=== PATIENT | male | born 1960 | race Caucasian/White ===

== ENCOUNTER 2020-06-23 10:56 | Emergency (ER) | payer MEDICARE, MEDICAID ==
[~2020-06-23] VITALS: Ht 175.3 cm; Wt 105.0 kg
[~2020-06-23 10:56] MED LIST: CIPR500T87 PO
[2020-06-23] MEDS ORDERED: SODIUM CHLORIDE FLUSH 10ML SYR IVF ONE (11:00)
--- NOTE | 2020-06-23 11:29 | NUR ---
BIB EMS FROM HOME, PT HAD BEEN OOT FOR PAST 3 DAYS AND DID NOT BRING HIS MEDICATIONS. +SOB STARTED LAST NIGHT WORSENING THIS MORNING WITH NON-PROD COUGH. EMS RPTS RA SA 86%, THEY APPLIED 1" OF NTG PASTE AND STARTED PT ON CPAP. PT PRESENTS A&O, O2 DELIVERY CHANGED TO 0XY MASK AT 8L, ETCO2 35 ON ARRIVAL, NOW 28. DR LOPEZ AT BEDSIDE, PT ASSESSMENT POC DISCUSSED AND ORDERS REC'D. Addendum: 06/23/20 at 1143 by LITTLE PT NOW STATES THAT HE WAS NOT OOT, JUST THAT HIS SO HAD NOT GIVEN HIM HIS MEDICATIONS FOR PAST 3 DAYS.
[2020-06-23] MEDS ORDERED: PLEASE ENTER HEIGHT AND WEIGHT MC SCH (11:30)
[2020-06-23] MEDS ORDERED: FUROSEMIDE 40 MG/4 ML ONE (11:37)
[2020-06-23 11:38] LABS: BASOPHILS # (AUTO) 0.05 x10^3/uL (0-0.1); BASOPHILS % (AUTO) 1 % (0-1); EOSINOPHILS # (AUTO) 0.19 x10^3/uL (0-0.4); EOSINOPHILS % (AUTO) 3 % (1-7); LYMPHOCYTES # (AUTO) 1.22 x10^3/uL (1-3.4); LYMPHOCYTES % (AUTO) 18 % (22-44); MD NO; MEAN CORPUSCULAR HEMOGLOBIN 28.8 pg (27.5-34.5); MEAN CORPUSCULAR HGB CONC 33.4 g/dL (33.2-36.2); MEAN PLATELET VOLUME 8.1 fL (7.4-10.4); MONOCYTES # (AUTO) 0.47 x10^3/uL (0.2-0.8); MONOCYTES % (AUTO) 7 % (2-9); NEUTROPHILS # (AUTO) 4.93 x10^3/uL (1.8-6.8); NEUTROPHILS % (AUTO) 72 % (42-75); PLATELET COUNT 161 x10^3/uL (130-400); RED BLOOD COUNT 4.68 x10^6/uL (4.38-5.82); RED CELL DISTRIBUTION WIDTH 15.6 % (9.4-14.8)
[2020-06-23 11:42] LABS: ALBUMIN 3.2 g/dL (3.4-5.0); ANION GAP 8 mmol/L (5-15); CHLORIDE 108 mmol/L (98-107)
--- NOTE | 2020-06-23 11:45 | NUR ---
PT MED NOTED, URINAL AT BEDSIDE. CALL LIGHT W/I REACH
--- NOTE | 2020-06-23 11:46 | NUR ---
PT STATES THAT HE USED [facility] 2 DAYS AGO
--- NOTE | 2020-06-23 11:47 | NUR ---
SBAR RPT TO MALENA GLASGOW
[2020-06-23 11:48] LABS: ALANINE AMINOTRANSFERASE 85 U/L (12-78); ALKALINE PHOSPHATASE 145 U/L (45-117); BILIRUBIN,TOTAL 0.7 mg/dL (0.2-1.0); CREATININE 1.26 mg/dL (0.7-1.3); TOTAL PROTEIN 6.1 g/dL (6.4-8.2); TROPONIN I 0.114 ng/mL (0.000-0.045)
--- NOTE | 2020-06-23 11:54 | NUR ---
DR LOPEZ AT BEDSIDE, TEST RESULTS REVIEWED. PLAN FOR ADMIT DISCUSSED, PT ADAMANTLY REFUSES ADMIT. DR LOPEZ EXPLAINED TO PT THAT HE COULD IF HE LEAVES TODAY. PT CONTINUES TO REFUSE ADMIT. I WILL TITRATE DOWN THE OXYGEN SUPPORT.
--- NOTE | 2020-06-23 11:57 | NUR ---
I EXPLAINED TO PT THAT WE WOULD BE TITRATING HIS OXYGEN SUPPORT DOWN AND REEVALUATE WITH HIM HOW HE FEELS OVER THE NEXT HOUR. PT IS AGREEABLE TO STAY UNTIL HE IS OFF THE OXYGEN.
[2020-06-23] MEDS ORDERED: FUROSEMIDE 40 MG/4 ML IV ONE (12:00)
[2020-06-23] MEDS ORDERED: ASPIRIN 81 MG TABLET CHEW PO ONE (12:00)
[2020-06-23 12:05] LABS: MICROSCOPIC NOT IND
--- NOTE | 2020-06-23 12:15 | NUR ---
REPORT RECEIVED FROM NISH GUY. PER NISH, THIS PT WISHES TO LEAVE AMA ONCE TITRATED OFF O2. PT RESTING ON GURNEY W/ CALL LIGHT IN REACH, SIDE RAILS UPX2. NADN.
[2020-06-23 12:18] LABS: AMPHETAMINE SCREEN, URINE Positive (Negative); BARBITURATE SCREEN, URINE Negative (Negative); BENZODIAZEPINE SCREEN, URINE Negative (Negative); CANNABINOID SCREEN, URINE Positive (Negative); COCAINE SCREEN, URINE Negative (Negative); METHADONE SCREEN, URINE Negative (Negative); OPIATE SCREEN, URINE Negative (Negative)
[2020-06-23 12:35] VITALS: BP 139/106
--- NOTE | 2020-06-23 12:36 | NUR ---
TASK RN: PT RESTING ON [facility], PT SIGNED AMA FORM, CURRENT SPO2 95% RA.
[2020-06-23] MEDS ORDERED: ASPIRIN 81 MG TABLET CHEW ONE (12:55)
[2020-06-27] MEDS ORDERED: FURO-93 PO (18:31)
[2020-06-27] MEDS ORDERED: CARV3.1212 PO (18:31)
== END 2020-06-23 13:11 | disposition home or self-care (01) ==
LOC: ED 13:00
DX: E11.65 Type 2 diabetes mellitus with hyperglycemia (principal); F15.10 Other stimulant abuse, uncomplicated; I50.82 Biventricular heart failure; I21.9 Acute myocardial infarction, unspecified; R06.00 Dyspnea, unspecified; R06.02 Shortness of breath
CPT/HCPCS: 36415; 36600; 71045; 80053; 80307; 81003; 82803; 83605; 83880; 84484; 85025; 87040; 93005; 96374; 99285; J1940

== ENCOUNTER 2020-11-11 13:12 | Inpatient (IN) | payer MEDICARE, MEDICAID ==
[~2020-11-11] VITALS: Ht 175.3 cm; Wt 94.4 kg
[~2020-11-11 13:12] MED LIST changes: +CARV3.1212 PO; +FURO-93 PO
[2020-11-11] MEDS ORDERED: SODIUM CHLORIDE FLUSH 10ML SYR IVF ONE (14:30)
[2020-11-11 14:34] LABS: MEAN CORPUSCULAR HEMOGLOBIN 28.8 pg (27.5-34.5); MEAN CORPUSCULAR HGB CONC 33.4 g/dL (33.2-36.2); PLATELET COUNT 165 x10^3/uL (130-400); RED BLOOD COUNT 4.94 x10^6/uL (4.38-5.82); RED CELL DISTRIBUTION WIDTH 18.4 % (9.4-14.8)
[2020-11-11 14:45] LABS: ALANINE AMINOTRANSFERASE 292 U/L (12-78); ANION GAP 6 mmol/L (5-15); CALCIUM 8.3 mg/dL (8.5-10.1); CHLORIDE 107 mmol/L (98-107); CREATININE 1.25 mg/dL (0.7-1.3)
[2020-11-11 14:50] LABS: ALKALINE PHOSPHATASE 147 U/L (45-117); BILIRUBIN,TOTAL 2.2 mg/dL (0.2-1.0); TOTAL PROTEIN 6.3 g/dL (6.4-8.2); TROPONIN I 0.053 ng/mL (0.000-0.045)
[2020-11-11] MEDS ORDERED: NITROGLYCERIN OINT 2%, 1GM TP ONE ×2 (15:30→15:48)
[2020-11-11] MEDS ORDERED: ASPIRIN 81 MG TABLET CHEW PO ONE (15:30)
[2020-11-11 15:41] LABS: MD YES
[2020-11-11 15:43] LABS: BAND#(MANUAL) 0.58 x10^3/uL; BANDS%(MANUAL) 4 % (0-7); LYMPH#(MANUAL) 1.31 x10^3/uL (1-3.4); LYMPHS% (MANUAL) 9 % (22-44); MONOS#(MANUAL) 1.16 x10^3/uL (0.3-2.7); MONOS% (MANUAL) 8 % (2-9); SEG#(MANUAL) 11.46 x10^3/uL (1.8-6.8); SEGS% (MANUAL) 79 % (42-75)
[2020-11-11 15:45] LABS: <PLATELET ESTIMATE> ADEQUATE; <PLT MORPHOLOGY> NORMAL PLT MORPH; ANISOCYTOSIS 1+
[2020-11-11] MEDS ORDERED: FUROSEMIDE 40 MG/4 ML ONE (15:47)
[2020-11-11] MEDS ORDERED: POTASSIUM CHLORIDE 20 MEQ TAB.ER.PRT ONE (15:48)
[2020-11-11] MEDS ORDERED: ASPIRIN 81 MG TABLET CHEW ONE (15:48)
[2020-11-11] MEDS ORDERED: ENALAPRILAT 1.25 MG/ML, 2ML IVPush PRN (16:00)
[2020-11-11] MEDS ORDERED: hydrALAzine 20 MG/ML, 1ML IVPush PRN (16:00)
[2020-11-11] MEDS ORDERED: MELATONIN 5 MG TABLET PO PRN (16:00)
[2020-11-11] MEDS ORDERED: ENALAPRILAT 1.25 MG/ML, 2ML IV ONE (16:00)
[2020-11-11] MEDS ORDERED: BISACODYL 10 MG SUPP PR PRN (16:00)
[2020-11-11] MEDS ORDERED: POTASSIUM CHLORIDE 20 MEQ TAB.ER.PRT PO ONE (16:00)
[2020-11-11] MEDS ORDERED: FUROSEMIDE 40 MG/4 ML IV ONE (16:00)
[2020-11-11] MEDS ORDERED: ONDANSETRON 2MG/ML, 2ML IVPush PRN (16:00)
[2020-11-11] MEDS ORDERED: POLYETHYLENE GLYCOL 17 GM PACKET PO PRN (16:00)
[2020-11-11] MEDS ORDERED: GUAIFENESIN/DM 200-20MG, 10ML UDC PO PRN (16:00)
[2020-11-11] MEDS ORDERED: LABETALOL 5MG/ML, 20ML IVPush PRN (16:00)
[2020-11-11] MEDS ORDERED: ONDANSETRON ODT 4 MG PO PRN (16:00)
[2020-11-11] MEDS ORDERED: FUROSEMIDE IV PRN (16:00)
[2020-11-11] MEDS ORDERED: SODIUM CHLORIDE 0.9% IV PRN (16:00)
[2020-11-11] MEDS ORDERED: ACETAMINOPHEN 325 MG TABLET PO PRN (16:00)
--- NOTE | 2020-11-11 16:06 | NUR ---
Late entry summary note: Pt has multiple complaints, see physical assessment. Pt has been sleeping while here in the ER, connected to all monitors. Pt medicated to MD Petrona CHANEY made aware of Vasotec shortage and gave verbal okay to start with Nitro paste, will continue to monitor BP and request orders if necessary. Lasix ordered from RX to be run over 10 minutes. Will administer when it arrives.
[2020-11-11] MEDS ORDERED: SODIUM CHLORIDE 0.9% IV ONE ×2 (16:30)
[2020-11-11] MEDS ORDERED: FUROSEMIDE IV ONE ×2 (16:30)
--- NOTE | 2020-11-11 16:54 | NUR ---
Hospital bed ordered.
[2020-11-11] MEDS ORDERED: ENOXAPARIN 40 MG/0.4 ML ONE (16:57)
[2020-11-11] MEDS ORDERED: CEFTRIAXONE PMX 1GM/50ML 50 ML ONE (16:57)
--- NOTE | 2020-11-11 17:04 | NUR ---
Pt to imaging.
--- NOTE | 2020-11-11 17:10 | NUR ---
MANOJ, Almaz, [employer] OPERATOR called to verify medication orders. Hold 1700 Lasix.
[2020-11-11] MEDS: FUROSEMIDE 40 MG/4 ML IV SCH (17:11)
[2020-11-11] MEDS ORDERED: OMNIPAQUE 350 MG/ML, 75ML BOTTLE ONE (17:25)
[2020-11-11] MEDS: CEFTRIAXONE PMX 1GM/50ML 50 ML IV SCH (17:37)
[2020-11-11] MEDS ORDERED: ENOXAPARIN 100 MG/ML ONE (17:48)
[2020-11-11] MEDS: ENOXAPARIN 100 MG/ML SQ SCH (17:54)
--- NOTE | 2020-11-11 18:27 | NUR ---
This RN administered PO medications. Pt able to swallow, based on this encounter, nectar thick diet tray ordered until speech path can do official swallow eval.
--- NOTE | 2020-11-11 18:32 | NUR ---
Pt to imaging.
--- NOTE | 2020-11-11 19:07 | NUR ---
received report from MALENA Warren. patient resting in bed. CAMILA
--- NOTE | 2020-11-11 19:23 | NUR ---
patient eating dinner at this time. Covid swab obtained and sent to lab.
--- NOTE | 2020-11-11 19:54 | NUR ---
patient urine out ~ 800 cc. states " I can breathe a little better ".
[2020-11-11 20:10] LABS: TROPONIN I 0.055 ng/mL (0.000-0.045)
--- NOTE | 2020-11-11 20:58 | NUR ---
patient moved to 34. report to MALENA Grajeda
[2020-11-11] MEDS ORDERED: DOXYCYCLINE 100MG TABLET ONE (21:07)
[2020-11-11] MEDS: DOXYCYCLINE 100MG TABLET PO SCH (21:14)
--- NOTE | 2020-11-11 21:21 | NUR ---
pt in bed, vss, admin meds,
[2020-11-12 01:54] VITALS: BP 137/89
[2020-11-12 02:36] LABS: BASOPHILS % (AUTO) 1 % (0-1); EOSINOPHILS % (AUTO) 1 % (1-7); LYMPHOCYTES % (AUTO) 13 % (22-44); MEAN CORPUSCULAR HEMOGLOBIN 28.6 pg (27.5-34.5); MEAN PLATELET VOLUME 8.1 fL (7.4-10.4); MONOCYTES % (AUTO) 13 % (2-9); NEUTROPHILS % (AUTO) 73 % (42-75); PLATELET COUNT 181 x10^3/uL (130-400); RED BLOOD COUNT 4.95 x10^6/uL (4.38-5.82); RED CELL DISTRIBUTION WIDTH 18.2 % (9.4-14.8)
[2020-11-12 02:37] LABS: MD NO
[2020-11-12 02:46] LABS: ALANINE AMINOTRANSFERASE 238 U/L (12-78); ALBUMIN 2.8 g/dL (3.4-5.0); ANION GAP 3 mmol/L (5-15); CALCIUM 8.1 mg/dL (8.5-10.1); CHLORIDE 106 mmol/L (98-107)
[2020-11-12 02:49] LABS: ALKALINE PHOSPHATASE 143 U/L (45-117); BILIRUBIN,TOTAL 1.6 mg/dL (0.2-1.0); CHOLESTEROL, TOTAL 88 mg/dL (140-239); HDL CHOL % 25 % (26-37); HDL CHOLESTEROL (DIRECT) 22 mg/dL (40-60); LDL CHOLESTEROL,CALCULATED 53 mg/dL (54-169); LDL/HDL RATIO 2.4 (0.5-3.0); TOTAL PROTEIN 6.2 g/dL (6.4-8.2); TRIGLYCERIDES 67 mg/dL (50-200); VLDL CHOLESTEROL 13 mg/dL (0-25)
[2020-11-12] MEDS: ENOXAPARIN 100 MG/ML SQ SCH ×2 (03:24→16:00)
[2020-11-12 03:32] LABS: AMPHETAMINE SCREEN, URINE Negative (Negative); BARBITURATE SCREEN, URINE Negative (Negative); BENZODIAZEPINE SCREEN, URINE Negative (Negative); CANNABINOID SCREEN, URINE Positive (Negative); COCAINE SCREEN, URINE Negative (Negative); METHADONE SCREEN, URINE Negative (Negative); OPIATE SCREEN, URINE Positive (Negative)
[2020-11-12 06:40] VITALS: BP 126/83
[2020-11-12] MEDS: POTASSIUM CHLORIDE 20 MEQ TAB.ER.PRT PO SCH ×2 (10:33→18:23)
[2020-11-12] MEDS: DOXYCYCLINE 100MG TABLET PO SCH ×2 (10:33→20:35)
[2020-11-12] MEDS: SENNA/DOCUSATE TABLET PO SCH (10:33)
[2020-11-12] MEDS: FUROSEMIDE 40 MG/4 ML IV SCH ×2 (10:34→18:23)
[2020-11-12 12:19] VITALS: BP 127/68
[2020-11-12] MEDS: CEFTRIAXONE PMX 1GM/50ML 50 ML IV SCH (18:22)
[2020-11-12] MEDS: CARVEDILOL 3.125 MG TABLET PO SCH (18:23)
[2020-11-12 19:55] VITALS: BP 132/93
[2020-11-13 00:36] VITALS: BP 124/88
[2020-11-13] MEDS: ENOXAPARIN 100 MG/ML SQ SCH (04:13)
[2020-11-13 05:19] VITALS: BP 134/87
[2020-11-13] MEDS: CARVEDILOL 3.125 MG TABLET PO SCH ×2 (05:20→17:04)
[2020-11-13 06:21] LABS: BASOPHILS % (AUTO) 0 % (0-1); EOSINOPHILS % (AUTO) 2 % (1-7); LYMPHOCYTES % (AUTO) 11 % (22-44); MEAN CORPUSCULAR HEMOGLOBIN 28.7 pg (27.5-34.5); MEAN CORPUSCULAR HGB CONC 33.3 g/dL (33.2-36.2); MEAN PLATELET VOLUME 7.9 fL (7.4-10.4); MONOCYTES % (AUTO) 9 % (2-9); NEUTROPHILS % (AUTO) 78 % (42-75); PLATELET COUNT 163 x10^3/uL (130-400); RED BLOOD COUNT 4.72 x10^6/uL (4.38-5.82); RED CELL DISTRIBUTION WIDTH 18.3 % (9.4-14.8)
[2020-11-13 06:22] LABS: MD NO
[2020-11-13 06:28] LABS: CALCIUM 8.1 mg/dL (8.5-10.1); CHLORIDE 107 mmol/L (98-107)
[2020-11-13 06:34] LABS: ALANINE AMINOTRANSFERASE 130 U/L (12-78); ALBUMIN 2.4 g/dL (3.4-5.0); ALKALINE PHOSPHATASE 113 U/L (45-117); ANION GAP 5 mmol/L (5-15); BILIRUBIN,TOTAL 1.4 mg/dL (0.2-1.0); CREATININE 1.27 mg/dL (0.7-1.3); TOTAL PROTEIN 5.4 g/dL (6.4-8.2)
[2020-11-13 07:35] VITALS: BP 100/73
[2020-11-13] MEDS: SENNA/DOCUSATE TABLET PO SCH (07:41)
[2020-11-13] MEDS: DOXYCYCLINE 100MG TABLET PO SCH ×2 (07:41→21:36)
[2020-11-13] MEDS: FUROSEMIDE 40 MG/4 ML IV SCH ×2 (07:41→17:03)
[2020-11-13] MEDS: POTASSIUM CHLORIDE 20 MEQ TAB.ER.PRT PO SCH ×2 (07:41→17:03)
[2020-11-13 13:26] VITALS: BP 117/77
[2020-11-13] MEDS: APIXABAN 5 MG TABLET PO SCH ×2 (15:09→21:36)
[2020-11-13] MEDS ORDERED: FLU VACC QS2020-21(6MOS UP)/PF 60MCG/0.5 ML SYR IM ONE (17:30)
[2020-11-13] MEDS: CEFTRIAXONE PMX 1GM/50ML 50 ML IV SCH (17:44)
[2020-11-13 19:57] VITALS: BP 108/69
[2020-11-14 02:20] VITALS: BP 117/85
[2020-11-14 03:55] LABS: ANION GAP 3 mmol/L (5-15); CALCIUM 7.9 mg/dL (8.5-10.1); CHLORIDE 109 mmol/L (98-107); CREATININE 1.25 mg/dL (0.7-1.3)
[2020-11-14] MEDS: CARVEDILOL 3.125 MG TABLET PO SCH (05:27)
[2020-11-14 07:14] VITALS: BP 119/73
[2020-11-20] MEDS ORDERED: APIXABAN 5 MG TABLET PO SCH (09:00)
== END 2020-11-14 07:58 | disposition left against medical advice (07) | DRG 175 ==
LOC: ED 13:53 → EDIP 15:07 → 4EST 11-12 01:52 → 5SO 11-13 13:43
PROVIDERS: ADMIT Internal Medicine; ATTEND Internal Medicine
DX: I26.99 Other pulmonary embolism without acute cor pulmonale (principal); J18.9 Pneumonia, unspecified organism; I50.23 Acute on chronic systolic (congestive) heart failure; J96.00 Acute respiratory failure, unspecified whether with hypoxia or hypercapnia; I13.0 Hypertensive heart and chronic kidney disease with heart failure and stage 1 through stage 4 chronic kidney disease, or unspecified chronic kidney disease; I24.8 Other forms of acute ischemic heart disease; E87.6 Hypokalemia; F12.90 Cannabis use, unspecified, uncomplicated; F17.210 Nicotine dependence, cigarettes, uncomplicated; H54.61 Unqualified visual loss, right eye, normal vision left eye; Z66 Do not resuscitate; N40.0 Benign prostatic hyperplasia without lower urinary tract symptoms; N18.30 Chronic kidney disease, stage 3 unspecified; I49.3 Ventricular premature depolarization; M21.371 Foot drop, right foot; Z53.29 Procedure and treatment not carried out because of patient's decision for other reasons; K76.1 Chronic passive congestion of liver; Z20.822 Contact with and (suspected) exposure to COVID-19; Z91.14 Patient's other noncompliance with medication regimen; Z91.19 Patient's noncompliance with other medical treatment and regimen; Z83.3 Family history of diabetes mellitus
CPT/HCPCS: 36415; 71045; 71275; 80048; 80053; 80061; 80307; 83615; 83735; 83880; 84145; 84443; 84484; 85025; 85379; 86140; 87040; 93005; 99291; G0378; J0696; J1650; J1940; Q9967; U0003

== ENCOUNTER 2021-03-01 17:43 | Emergency (ER) | payer MEDICARE, MEDICAID ==
[~2021-03-01] VITALS: Ht 172.7 cm; Wt 99.0 kg
[2021-03-01] MEDS ORDERED: SODIUM CHLORIDE FLUSH 10ML SYR IVF ONE (18:00)
--- NOTE | 2021-03-01 18:19 | NUR ---
PT PLACED IN PT GOWN. PT SPEECH SLURRED AND RUSHED. PT STATED THAT IS NEW OF THIS AM IS THE ABD DISTENTION AND DIFFICULTY BREATHING. ERP HAS EVALUATED PT, ORDERS PLACED. PT ON CARDIAC AND VITALS MONITORS. LAB IN AT THIS TIME TO DRAW BLOOD.
[2021-03-01 18:33] LABS: BASOPHILS % (AUTO) 1 % (0-1); EOSINOPHILS % (AUTO) 6 % (1-7); LYMPHOCYTES % (AUTO) 22 % (22-44); MEAN CORPUSCULAR HEMOGLOBIN 21.5 pg (27.5-34.5); MEAN CORPUSCULAR HGB CONC 30.6 g/dL (33.2-36.2); MEAN PLATELET VOLUME 8.7 fL (7.4-10.4); MONOCYTES % (AUTO) 9 % (2-9); NEUTROPHILS % (AUTO) 62 % (42-75); PLATELET COUNT 199 x10^3/uL (130-400); RED BLOOD COUNT 4.68 x10^6/uL (4.38-5.82); RED CELL DISTRIBUTION WIDTH 20.9 % (9.4-14.8)
--- NOTE | 2021-03-01 18:40 | NUR ---
PT YELLING OUT INTO HALLWAY FOR RANDOM THINGS. PT ASKED TO STOP YELLING. PT STATED HE WANTS TO LEAVE. PT INFORMED THAT HE IS SAFE IN THE HOSPITAL AND THE DOCTOR HAS ORDERED TESTS. PT CONTINUING TO YELL FOR RN, WATER, HELP, ETC. PT IS IN ROOM BY RN STATION. HE IS RESTING IN BED AND BEING MONITORED. WILL CONTINUE TO MONITOR.
[2021-03-01 18:41] LABS: ALBUMIN 3.1 g/dL (3.4-5.0); ANION GAP 6 mmol/L (5-15); CALCIUM 8.3 mg/dL (8.5-10.1); CHLORIDE 112 mmol/L (98-107)
[2021-03-01 18:47] LABS: ALANINE AMINOTRANSFERASE 45 U/L (12-78); ALKALINE PHOSPHATASE 126 U/L (45-117); BILIRUBIN,TOTAL 0.5 mg/dL (0.2-1.0); CREATININE 1.21 mg/dL (0.7-1.3); TROPONIN I 0.032 ng/mL (0.000-0.045)
[2021-03-01 18:52] LABS: MD MORPH REVIEW ONLY
[2021-03-01 18:53] LABS: ANISOCYTOSIS 1+; MICROCYTOSIS 2+; POLYCHROMASIA 1+
[2021-03-01 18:54] LABS: ECHINOCYTES 1+; HYPOCHROMIA 2+; OVALOCYTES 1+; SCHISTOCYTES 1+
[2021-03-01 18:55] LABS: <PLATELET ESTIMATE> ADEQUATE; <PLT MORPHOLOGY> NORMAL PLT MORPH
--- NOTE | 2021-03-01 19:08 | NUR ---
RECEIVED REPORT FROM TALON GUY TO [facility].
--- NOTE | 2021-03-01 19:28 | NUR ---
URINE SENT. PT STATES FEEL MUCH BETTER. VSS. RAILS UP X2.
[2021-03-01 19:51] LABS: AMPHETAMINE SCREEN, URINE Positive (Negative); BARBITURATE SCREEN, URINE Negative (Negative); BENZODIAZEPINE SCREEN, URINE Negative (Negative); CANNABINOID SCREEN, URINE Positive (Negative); COCAINE SCREEN, URINE Negative (Negative); METHADONE SCREEN, URINE Negative (Negative); OPIATE SCREEN, URINE Negative (Negative)
[2021-03-01 21:52] VITALS: BP 140/93
--- NOTE | 2021-03-01 21:55 | NUR ---
Patient/Caregiver given discharge instructions and they have confirmed that they understand the instructions. Patient left in wheelchair with no questions.
== END 2021-03-01 21:57 | disposition home or self-care (01) ==
LOC: ED 19:29
DX: F15.10 Other stimulant abuse, uncomplicated (principal); R51.9 Headache, unspecified; R07.89 Other chest pain; I11.0 Hypertensive heart disease with heart failure; I50.9 Heart failure, unspecified
CPT/HCPCS: 36415; 70450; 71045; 80053; 80307; 83880; 84484; 85025; 99285

== ENCOUNTER 2021-03-06 18:20 | Emergency (ER) | payer MEDICARE, MEDICAID ==
[~2021-03-06] VITALS: Ht 175.3 cm; Wt 99.0 kg
--- NOTE | 2021-03-06 18:43 | NUR ---
pt biba after falling "last night on penis and now its twisting" patient states it is no longer working. penis appears edematous, however pt has generalized +3 edema througout body. pt states he also fell on face but denies LOC. pt on eliquis. pt attached to all monitors. vss. postioned to comfort. ne.
--- NOTE | 2021-03-06 18:57 | NUR ---
BEDSIDE REPORT RECEIVED BY MALENA PERKINS
--- NOTE | 2021-03-06 19:03 | NUR ---
PT RESTING COMFORTABLY ON GURNEY, DENIES NEEDS AT THIS TIME, PT'S BELONGINGS AND CALL LIGHT AT BEDSIDE
--- NOTE | 2021-03-06 19:37 | NUR ---
XRAY AT BEDSIDE
[2021-03-06 20:14] LABS: BASOPHILS % (AUTO) 1 % (0-1); EOSINOPHILS % (AUTO) 3 % (1-7); LYMPHOCYTES % (AUTO) 18 % (22-44); MEAN CORPUSCULAR HEMOGLOBIN 21.5 pg (27.5-34.5); MEAN CORPUSCULAR HGB CONC 31.1 g/dL (33.2-36.2); MEAN PLATELET VOLUME 8.6 fL (7.4-10.4); MONOCYTES % (AUTO) 12 % (2-9); NEUTROPHILS % (AUTO) 66 % (42-75); PLATELET COUNT 248 x10^3/uL (130-400); RED BLOOD COUNT 4.85 x10^6/uL (4.38-5.82); RED CELL DISTRIBUTION WIDTH 21.2 % (9.4-14.8)
[2021-03-06 20:15] LABS: MD NO
--- NOTE | 2021-03-06 20:16 | NUR ---
TASK RN: PT JACKIE CALLED [facility] REQUESTING UPDATE [phone]
[2021-03-06 20:22] LABS: ALBUMIN 3.1 g/dL (3.4-5.0); ANION GAP 5 mmol/L (5-15); CALCIUM 8.1 mg/dL (8.5-10.1); CHLORIDE 111 mmol/L (98-107); CREATININE 1.45 mg/dL (0.7-1.3)
[2021-03-06 20:26] LABS: TROPONIN I 0.031 ng/mL (0.000-0.045)
--- NOTE | 2021-03-06 21:02 | NUR ---
PT SITTING UPRIGHT ON GURNEY WITH EYES CLOSED RESTING COMFORTABLY. NADN, VSS. PT DENIES ANY NEEDS AT THIS TIME. CALL LIGHT AND BELONGINGS WITHIN REACH.
--- NOTE | 2021-03-06 21:28 | NUR ---
HOSPITALIST AT BEDSIDE
[2021-03-06] MEDS ORDERED: FUROSEMIDE 40 MG/4 ML IVPush ONE (21:30)
[2021-03-06] MEDS ORDERED: FUROSEMIDE 40 MG/4 ML ONE (21:31)
--- NOTE | 2021-03-06 21:44 | NUR ---
20 g IV started to left forearm, meds given. Pt resting comfortably on gurney, denies any needs at this time.
[2021-03-06 22:09] VITALS: BP 169/99
--- NOTE | 2021-03-06 22:10 | NUR ---
Patient given discharge instructions and they have confirmed that they understand the instructions. Patient ambulatory with steady gait.
== END 2021-03-06 22:21 | disposition home or self-care (01) ==
LOC: ED 19:44
DX: R60.1 Generalized edema (principal); I11.0 Hypertensive heart disease with heart failure; I50.9 Heart failure, unspecified; R07.9 Chest pain, unspecified; F17.290 Nicotine dependence, other tobacco product, uncomplicated
CPT/HCPCS: 36415; 71045; 80048; 82040; 83880; 84484; 85025; 96374; 99285; J1940

== ENCOUNTER 2021-03-12 21:36 | Inpatient (IN) | payer MEDICARE, MEDICAID ==
[~2021-03-12] VITALS: Ht 175.3 cm; Wt 94.0 kg
--- NOTE | 2021-03-12 21:59 | NUR ---
BIB [facility] FROM HOME. PT C/O L ELBOW PAIN WITH WOUND/SWELLING. BILAT LEG PAIN/WOUNDS. SLURRED SPEECH STARTING THIS AM 0800. HX STROKE, ON ELIQUIS. EFFICIENCY ANALYST [facility]: PIV 18G RAC, FSBG 223. ERMD HAS BEEN AT BEDSIDE FOR ASSESSMENT. PT CONNECTED TO MONITORING. CALL LIGHT IN REACH. FALL PRECAUTIONS IN PLACE.
[2021-03-12] MEDS ORDERED: SODIUM CHLORIDE FLUSH 10ML SYR IVF ONE (22:00)
[2021-03-12] MEDS ORDERED: SODIUM CHLORIDE 0.9% 1,000ML IVBOLUS ONE (22:00)
--- NOTE | 2021-03-12 22:13 | NUR ---
PT PROVIDE URINE SAMPLE IN URINAL. UA COLLECTED AND SENT TO LAB. LABS DRAWN FROM EXISTING PIV AND COLLECTED BY STRATEGIC BUYER. IVF RUNNING. XRAYS COMPLETE. PT SLEEPING ON GURNEY. RESP EVEN AND UNLABORED.
[2021-03-12 22:25] LABS: BASOPHILS % (AUTO) 1 % (0-1); EOSINOPHILS % (AUTO) 1 % (1-7); LYMPHOCYTES % (AUTO) 7 % (22-44); MEAN CORPUSCULAR HEMOGLOBIN 21.3 pg (27.5-34.5); MEAN CORPUSCULAR HGB CONC 31.2 g/dL (33.2-36.2); MEAN PLATELET VOLUME 8.4 fL (7.4-10.4); MONOCYTES % (AUTO) 11 % (2-9); NEUTROPHILS % (AUTO) 80 % (42-75); PLATELET COUNT 188 x10^3/uL (130-400); RED BLOOD COUNT 4.61 x10^6/uL (4.38-5.82); RED CELL DISTRIBUTION WIDTH 21.4 % (9.4-14.8)
[2021-03-12 22:30] LABS: MICROSCOPIC AUTO
--- NOTE | 2021-03-12 22:31 | NUR ---
PT BACK FROM CT. IVF RUNNING. PT CONNECTED TO MONITORING. CALL LIGHT IN REACH.
[2021-03-12 22:35] LABS: ALBUMIN 2.6 g/dL (3.4-5.0); ANION GAP 5 mmol/L (5-15); CALCIUM 7.8 mg/dL (8.5-10.1); CHLORIDE 107 mmol/L (98-107)
[2021-03-12 22:36] LABS: MD NO
[2021-03-12 22:38] LABS: ALANINE AMINOTRANSFERASE 24 U/L (12-78); ALKALINE PHOSPHATASE 97 U/L (45-117); BILIRUBIN,TOTAL 0.9 mg/dL (0.2-1.0); CREATININE 1.26 mg/dL (0.7-1.3); TOTAL PROTEIN 5.7 g/dL (6.4-8.2)
--- NOTE | 2021-03-12 23:01 | NUR ---
ALAINA, GIRLFRIEND [phone]
--- NOTE | 2021-03-12 23:03 | NUR ---
REPORT GIVEN TO JP GUY.
--- NOTE | 2021-03-12 23:05 | NUR ---
REPORT RECEIVED FROM BENI GUY.
--- NOTE | 2021-03-12 23:13 | NUR ---
PT UPDATED ON WAITING FOR RESULTS OF CT OF HEAD TO GET BACK. PT RESTING IN BED WITH NADN. VSS. BED RAILS UP X2.
[2021-03-13] MEDS ORDERED: ONDANSETRON ODT 4 MG PO PRN (01:00)
[2021-03-13] MEDS ORDERED: CEFTRIAXONE 1,000 MG in DEXTROSE 5% 50 ML IVPB SCH (01:00)
[2021-03-13] MEDS ORDERED: BISACODYL 10 MG SUPP PR PRN (01:00)
[2021-03-13] MEDS ORDERED: POLYETHYLENE GLYCOL 17 GM PACKET PO PRN (01:00)
--- NOTE | 2021-03-13 01:26 | NUR ---
Report given to Carrie GUY for tranfer of care. Rm [phone]
--- NOTE | 2021-03-13 01:33 | NUR ---
PT TRANFERED TO FLOOR WITH BELONGINGS 331.
[2021-03-13 01:38] VITALS: BP 118/75
[2021-03-13] MEDS ORDERED: HYDROmorphone 1 MG/ML, 1ML INJ IV ONE (04:30)
[2021-03-13 05:23] LABS: BASOPHILS % (AUTO) 1 % (0-1); EOSINOPHILS % (AUTO) 0 % (1-7); LYMPHOCYTES % (AUTO) 8 % (22-44); MEAN CORPUSCULAR HEMOGLOBIN 21.5 pg (27.5-34.5); MEAN CORPUSCULAR HGB CONC 31.4 g/dL (33.2-36.2); MEAN PLATELET VOLUME 8.7 fL (7.4-10.4); MONOCYTES % (AUTO) 13 % (2-9); NEUTROPHILS % (AUTO) 78 % (42-75); PLATELET COUNT 163 x10^3/uL (130-400); RED BLOOD COUNT 4.28 x10^6/uL (4.38-5.82); RED CELL DISTRIBUTION WIDTH 21.2 % (9.4-14.8)
[2021-03-13 05:24] LABS: MD NO
[2021-03-13 05:32] LABS: ANION GAP 3 mmol/L (5-15); CALCIUM 7.7 mg/dL (8.5-10.1); CHLORIDE 109 mmol/L (98-107); CREATININE 1.12 mg/dL (0.7-1.3)
[2021-03-13 06:22] VITALS: BP 135/72
[2021-03-13] MEDS ORDERED: FUROSEMIDE 20 MG TABLET PO SCH (09:00)
[2021-03-13] MEDS: FERROUS SULFATE 325 MG TABLET PO SCH ×2 (11:34→20:56)
[2021-03-13] MEDS: CARVEDILOL 3.125 MG TABLET PO SCH ×2 (11:35→20:56)
[2021-03-13] MEDS: SODIUM CHLORIDE FLUSH 10ML SYR IVF SCH ×2 (11:35→20:57)
[2021-03-13] MEDS: SENNA/DOCUSATE TABLET PO SCH (11:36)
[2021-03-13 13:22] VITALS: BP 108/66
[2021-03-13] MEDS ORDERED: LISI-606 PO (15:44)
[2021-03-13] MEDS ORDERED: CARV3.12 PO (15:44)
[2021-03-13] MEDS ORDERED: SPIR25TA5 PO (15:44)
[2021-03-13] MEDS: ACETAMINOPHEN 325 MG TABLET PO PRN (15:52)
[2021-03-13] MEDS ORDERED: VANCOMYCIN PER PHARMACY MC PRN (16:30)
[2021-03-13] MEDS ORDERED: PHARMACOKINETIC CONSULTATION MC ONE (17:00)
[2021-03-13] MEDS ORDERED: VANCOMYCIN 2,500 MG in SODIUM CHLORIDE 0.9% 500 ML IV ONE (17:00)
[2021-03-13] MEDS ORDERED: PHARMACOKINETIC MONITORING MC PRN (17:00)
[2021-03-13] MEDS ORDERED: GADOTERATE 10 MMOL/20ML SYR ONE (19:37)
[2021-03-13] MEDS: OXYcodone IR 5MG TABLET PO PRN (20:01)
[2021-03-13 20:24] VITALS: BP 111/71
[2021-03-13] MEDS: FUROSEMIDE 20 MG TABLET PO SCH (20:57)
[2021-03-13] MEDS: HEPARIN 5,000 UNITS/ML, 1ML SQ SCH (20:57)
[2021-03-13] MEDS: AMPICILLIN/SULBACTAM 3 GM in SODIUM CHLORIDE 0.9% 100 ML IV SCH (22:56)
[2021-03-13] MEDS: NICOTINE 14MG/24 HR PATCH.TD24 TD SCH (23:00)
[2021-03-14 01:38] VITALS: BP 122/80
[2021-03-14] MEDS: HEPARIN 5,000 UNITS/ML, 1ML SQ SCH ×3 (04:44→20:31)
[2021-03-14] MEDS: AMPICILLIN/SULBACTAM 3 GM in SODIUM CHLORIDE 0.9% 100 ML IV SCH ×4 (04:50→22:31)
[2021-03-14 05:19] LABS: BASOPHILS % (AUTO) 0 % (0-1); EOSINOPHILS % (AUTO) 1 % (1-7); LYMPHOCYTES % (AUTO) 7 % (22-44); MEAN CORPUSCULAR HEMOGLOBIN 21.6 pg (27.5-34.5); MEAN CORPUSCULAR HGB CONC 31.3 g/dL (33.2-36.2); MEAN PLATELET VOLUME 8.7 fL (7.4-10.4); MONOCYTES % (AUTO) 12 % (2-9); NEUTROPHILS % (AUTO) 81 % (42-75); PLATELET COUNT 160 x10^3/uL (130-400); RED BLOOD COUNT 4.37 x10^6/uL (4.38-5.82); RED CELL DISTRIBUTION WIDTH 21.5 % (9.4-14.8)
[2021-03-14 05:21] LABS: HCT (SEDRATE) 30.2 % (39.2-51.8)
[2021-03-14 05:29] LABS: ANION GAP 6 mmol/L (5-15); CALCIUM 7.9 mg/dL (8.5-10.1); CHLORIDE 109 mmol/L (98-107)
[2021-03-14 06:12] LABS: MD MORPH REVIEW ONLY
[2021-03-14 06:13] LABS: ANISOCYTOSIS 1+; MICROCYTOSIS 2+; POLYCHROMASIA 1+; SCHISTOCYTES 1+; TARGET CELLS 1+
[2021-03-14 06:14] LABS: <PLATELET ESTIMATE> ADEQUATE; <PLT MORPHOLOGY> NORMAL PLT MORPH; ECHINOCYTES 1+
[2021-03-14 06:37] VITALS: BP 105/68
[2021-03-14] MEDS: FERROUS SULFATE 325 MG TABLET PO SCH ×2 (08:00→16:50)
[2021-03-14] MEDS: SENNA/DOCUSATE TABLET PO SCH (08:42)
[2021-03-14] MEDS: FUROSEMIDE 20 MG TABLET PO SCH ×2 (08:57→16:50)
[2021-03-14] MEDS: SODIUM CHLORIDE FLUSH 10ML SYR IVF SCH ×2 (08:58→20:31)
[2021-03-14] MEDS: OXYcodone IR 5MG TABLET PO PRN (09:00)
[2021-03-14] MEDS ORDERED: FENTANYL PF 100 MCG/2ML ONE ×2 (11:55→13:15)
[2021-03-14] MEDS ORDERED: MIDAZOLAM 1 MG/ML, 2ML ONE (11:55)
[2021-03-14] MEDS ORDERED: OXYcodone 5 MG/5 ML ORAL.SOL UDC PO PRN (12:00)
[2021-03-14] MEDS ORDERED: ONDANSETRON 2MG/ML, 2ML IVPush PRN (12:00)
[2021-03-14] MEDS ORDERED: FENTANYL PF 100 MCG/2ML IV PRN (12:00)
[2021-03-14] MEDS ORDERED: HYDROmorphone 1 MG/ML, 1ML INJ IVPush PRN (12:00)
[2021-03-14] MEDS ORDERED: HYDROcodone/APAP 7.5-325MG/15ML UDC PO PRN (12:00)
[2021-03-14] MEDS ORDERED: MEPERIDINE/PF 25MG/0.5ML IVPush PRN (12:00)
[2021-03-14] MEDS ORDERED: PROMETHAZINE 25 MG/ML, 1ML IVPush PRN (12:00)
[2021-03-14] MEDS ORDERED: VANCOMYCIN 1,800 MG in SODIUM CHLORIDE 0.9% 250 ML IV SCH (13:00)
[2021-03-14] MEDS ORDERED: OXYcodone 5 MG/5 ML ORAL.SOL UDC ONE (13:16)
[2021-03-14 14:00] VITALS: BP 119/77
[2021-03-14 19:43] VITALS: BP 136/83
[2021-03-14] MEDS: NICOTINE 14MG/24 HR PATCH.TD24 TD SCH (22:31)
[2021-03-15] MEDS: OXYcodone IR 5MG TABLET PO PRN ×3 (00:38→18:17)
[2021-03-15 02:11] VITALS: BP 103/62
[2021-03-15] MEDS ORDERED: MORPHINE SULFATE 4 MG/ML, 1ML IVPush PRN (02:30)
[2021-03-15] MEDS ORDERED: ASPIRIN 325 MG TABLET PO PRN (02:30)
[2021-03-15] MEDS ORDERED: NITROGLYCERIN 0.4 MG BOTTLE (25 TABS) SL PRN (02:30)
[2021-03-15 02:59] LABS: TROPONIN I 0.027 ng/mL (0.000-0.045)
[2021-03-15 03:28] VITALS: BP 91/52
[2021-03-15] MEDS ORDERED: METOPROLOL TARTRATE 25 MG TAB PO SCH ×2 (03:30)
[2021-03-15] MEDS: HEPARIN 5,000 UNITS/ML, 1ML SQ SCH ×3 (04:07→20:13)
[2021-03-15] MEDS: AMPICILLIN/SULBACTAM 3 GM in SODIUM CHLORIDE 0.9% 100 ML IV SCH ×4 (04:07→22:31)
[2021-03-15 04:28] VITALS: BP 97/60
[2021-03-15] MEDS ORDERED: NITROGLYCERIN SINGLE TAB 0.4 MG SL PRN (04:30)
[2021-03-15 05:48] LABS: BASOPHILS % (AUTO) 1 % (0-1); EOSINOPHILS % (AUTO) 1 % (1-7); LYMPHOCYTES % (AUTO) 10 % (22-44); MEAN CORPUSCULAR HEMOGLOBIN 21.9 pg (27.5-34.5); MEAN CORPUSCULAR HGB CONC 31.6 g/dL (33.2-36.2); MEAN PLATELET VOLUME 8.7 fL (7.4-10.4); MONOCYTES % (AUTO) 14 % (2-9); NEUTROPHILS % (AUTO) 75 % (42-75); PLATELET COUNT 152 x10^3/uL (130-400); RED BLOOD COUNT 4.04 x10^6/uL (4.38-5.82); RED CELL DISTRIBUTION WIDTH 21.5 % (9.4-14.8)
[2021-03-15 05:56] LABS: CHLORIDE 108 mmol/L (98-107)
[2021-03-15 06:03] LABS: ANION GAP 6 mmol/L (5-15); CALCIUM 7.4 mg/dL (8.5-10.1); VANCOMYCIN,RANDOM 11.6 mcg/mL
[2021-03-15 06:05] LABS: TROPONIN I 0.027 ng/mL (0.000-0.045)
[2021-03-15 06:09] LABS: MD NO
[2021-03-15 07:08] VITALS: BP 101/66
[2021-03-15] MEDS: FERROUS SULFATE 325 MG TABLET PO SCH ×4 (08:00→18:17)
[2021-03-15] MEDS: SODIUM CHLORIDE FLUSH 10ML SYR IVF SCH ×2 (09:00→20:13)
[2021-03-15] MEDS: SENNA/DOCUSATE TABLET PO SCH ×2 (09:00→11:35)
[2021-03-15 12:32] VITALS: BP 125/78
[2021-03-15 12:58] LABS: TROPONIN I 0.024 ng/mL (0.000-0.045)
[2021-03-15] MEDS: VANCOMYCIN 1,800 MG in SODIUM CHLORIDE 0.9% 250 ML IV SCH (13:10)
--- NOTE | 2021-03-15 16:01 | NUR ---
GROUND/THIN - MEDICAL RESEARCH TECH PLACED SWALLOW PRECAUTION SIGN AT HOB Addendum: 03/15/21 at 1601 by Devorah WHEATLEY Amended: Links added.
[2021-03-15] MEDS ORDERED: ONDANSETRON 2MG/ML, 2ML ONE (16:35)
[2021-03-15] MEDS ORDERED: VASOPRESSIN 20 UNIT/ML, 1ML ONE (16:35)
[2021-03-15] MEDS ORDERED: PHENYLEPHRINE 10 MG/ML ONE (16:35)
[2021-03-15] MEDS ORDERED: PROPOFOL 10 MG/ML, 20ML ONE (16:35)
[2021-03-15 19:51] VITALS: BP 110/83
[2021-03-15 20:36] LABS: TROPONIN I 0.028 ng/mL (0.000-0.045)
[2021-03-15] MEDS: NICOTINE 14MG/24 HR PATCH.TD24 TD SCH (22:30)
[2021-03-16 01:23] VITALS: BP 132/68
[2021-03-16] MEDS: HEPARIN 5,000 UNITS/ML, 1ML SQ SCH ×3 (04:44→21:53)
[2021-03-16] MEDS: AMPICILLIN/SULBACTAM 3 GM in SODIUM CHLORIDE 0.9% 100 ML IV SCH ×4 (04:44→22:47)
[2021-03-16 05:22] LABS: BASOPHILS % (AUTO) 1 % (0-1); EOSINOPHILS % (AUTO) 2 % (1-7); LYMPHOCYTES % (AUTO) 13 % (22-44); MEAN CORPUSCULAR HEMOGLOBIN 21.9 pg (27.5-34.5); MEAN CORPUSCULAR HGB CONC 31.6 g/dL (33.2-36.2); MEAN PLATELET VOLUME 8.6 fL (7.4-10.4); MONOCYTES % (AUTO) 12 % (2-9); NEUTROPHILS % (AUTO) 73 % (42-75); PLATELET COUNT 148 x10^3/uL (130-400); RED BLOOD COUNT 3.98 x10^6/uL (4.38-5.82); RED CELL DISTRIBUTION WIDTH 21.9 % (9.4-14.8)
[2021-03-16 05:29] LABS: ANION GAP 4 mmol/L (5-15); CALCIUM 7.5 mg/dL (8.5-10.1); CHLORIDE 106 mmol/L (98-107)
[2021-03-16 05:31] LABS: CREATININE 1.21 mg/dL (0.7-1.3)
[2021-03-16 05:32] LABS: MD NO
[2021-03-16 07:04] VITALS: BP 136/81
[2021-03-16] MEDS: SENNA/DOCUSATE TABLET PO SCH (08:29)
[2021-03-16] MEDS: FERROUS SULFATE 325 MG TABLET PO SCH ×2 (08:29→16:43)
[2021-03-16] MEDS: FUROSEMIDE 20 MG TABLET PO SCH (08:30)
[2021-03-16] MEDS: SODIUM CHLORIDE FLUSH 10ML SYR IVF SCH ×2 (08:31→21:53)
[2021-03-16] MEDS ORDERED: REGADENOSON 0.4 MG/5 ML SYRINGE ONE (11:51)
[2021-03-16] MEDS: OXYcodone IR 5MG TABLET PO PRN ×2 (12:46→22:47)
[2021-03-16] MEDS: VANCOMYCIN 1,800 MG in SODIUM CHLORIDE 0.9% 250 ML IV SCH (12:46)
[2021-03-16 15:47] VITALS: BP 148/92
[2021-03-16 20:27] VITALS: BP 156/88
[2021-03-16 21:02] LABS: OCCULT BLOOD POSITIVE (NEGATIVE)
[2021-03-16] MEDS: NICOTINE 14MG/24 HR PATCH.TD24 TD SCH (22:47)
[2021-03-17 02:10] VITALS: BP 144/84
[2021-03-17] MEDS: AMPICILLIN/SULBACTAM 3 GM in SODIUM CHLORIDE 0.9% 100 ML IV SCH ×3 (04:59→16:55)
[2021-03-17 05:27] LABS: BASOPHILS % (AUTO) 1 % (0-1); EOSINOPHILS % (AUTO) 3 % (1-7); LYMPHOCYTES % (AUTO) 13 % (22-44); MEAN CORPUSCULAR HEMOGLOBIN 21.9 pg (27.5-34.5); MEAN CORPUSCULAR HGB CONC 31.5 g/dL (33.2-36.2); MEAN PLATELET VOLUME 8.3 fL (7.4-10.4); MONOCYTES % (AUTO) 9 % (2-9); NEUTROPHILS % (AUTO) 74 % (42-75); PLATELET COUNT 169 x10^3/uL (130-400); RED BLOOD COUNT 4.21 x10^6/uL (4.38-5.82); RED CELL DISTRIBUTION WIDTH 21.9 % (9.4-14.8)
[2021-03-17 05:39] LABS: ANION GAP 7 mmol/L (5-15); CALCIUM 8.1 mg/dL (8.5-10.1); CHLORIDE 108 mmol/L (98-107); CREATININE 1.24 mg/dL (0.7-1.3)
[2021-03-17 05:58] LABS: MD NO
[2021-03-17 08:00] VITALS: BP 158/65
[2021-03-17] MEDS: FERROUS SULFATE 325 MG TABLET PO SCH ×2 (08:18→16:56)
[2021-03-17] MEDS: SENNA/DOCUSATE TABLET PO SCH (08:18)
[2021-03-17] MEDS: FUROSEMIDE 20 MG TABLET PO SCH (08:18)
[2021-03-17] MEDS: SODIUM CHLORIDE FLUSH 10ML SYR IVF SCH ×2 (08:18→22:06)
[2021-03-17] MEDS: VANCOMYCIN 1,800 MG in SODIUM CHLORIDE 0.9% 250 ML IV SCH (12:50)
[2021-03-17 14:53] VITALS: BP 155/79
[2021-03-17] MEDS: OXYcodone IR 5MG TABLET PO PRN ×2 (16:56→22:07)
[2021-03-17 19:17] VITALS: BP 144/74
[2021-03-17] MEDS: NICOTINE 14MG/24 HR PATCH.TD24 TD SCH (22:06)
[2021-03-18 01:36] VITALS: BP 138/71
[2021-03-18] MEDS: OXYcodone IR 5MG TABLET PO PRN (02:40)
[2021-03-18 07:20] VITALS: BP 169/93
[2021-03-18 09:49] VITALS: BP 167/76
[2021-03-18] MEDS: SENNA/DOCUSATE TABLET PO SCH (09:50)
[2021-03-18] MEDS: FUROSEMIDE 20 MG TABLET PO SCH (09:50)
[2021-03-18] MEDS: LISINOPRIL 5 MG TABLET PO SCH (09:50)
[2021-03-18] MEDS: CARVEDILOL 3.125 MG TABLET PO SCH ×2 (09:50→20:44)
[2021-03-18] MEDS: FERROUS SULFATE 325 MG TABLET PO SCH ×2 (09:50→16:38)
[2021-03-18] MEDS: SODIUM CHLORIDE FLUSH 10ML SYR IVF SCH ×2 (09:51→20:36)
[2021-03-18 11:27] VITALS: BP 164/97
[2021-03-18] MEDS: SPIRONOLACTONE 25 MG TABLET PO SCH (11:27)
[2021-03-18] MEDS: VANCOMYCIN 1,800 MG in SODIUM CHLORIDE 0.9% 250 ML IV SCH (12:32)
[2021-03-18] MEDS: APIXABAN 5 MG TABLET PO SCH ×2 (15:34→20:44)
[2021-03-18 15:39] VITALS: BP 118/84
[2021-03-18] MEDS: AMPICILLIN/SULBACTAM 3 GM in SODIUM CHLORIDE 0.9% 100 ML IV SCH (19:42)
[2021-03-18] MEDS: DAPTOMYCIN 650 MG in SODIUM CHLORIDE 0.9% 100 ML IVPB SCH (20:44)
[2021-03-18 20:58] VITALS: BP 102/65
[2021-03-18] MEDS: NICOTINE 14MG/24 HR PATCH.TD24 TD SCH (22:44)
[2021-03-19 01:42] VITALS: BP 156/74
[2021-03-19] MEDS: AMPICILLIN/SULBACTAM 3 GM in SODIUM CHLORIDE 0.9% 100 ML IV SCH ×3 (03:12→21:01)
[2021-03-19 05:24] LABS: HCT (SEDRATE) 33.7 % (39.2-51.8)
[2021-03-19 05:25] LABS: CHLORIDE 107 mmol/L (98-107)
[2021-03-19 05:29] LABS: BASOPHILS % (AUTO) 1 % (0-1); EOSINOPHILS % (AUTO) 3 % (1-7); LYMPHOCYTES % (AUTO) 11 % (22-44); MEAN CORPUSCULAR HEMOGLOBIN 21.6 pg (27.5-34.5); MEAN CORPUSCULAR HGB CONC 31.6 g/dL (33.2-36.2); MEAN PLATELET VOLUME 8.4 fL (7.4-10.4); MONOCYTES % (AUTO) 8 % (2-9); NEUTROPHILS % (AUTO) 77 % (42-75); PLATELET COUNT 213 x10^3/uL (130-400); RED BLOOD COUNT 4.96 x10^6/uL (4.38-5.82); RED CELL DISTRIBUTION WIDTH 22.7 % (9.4-14.8)
[2021-03-19 05:43] LABS: ALANINE AMINOTRANSFERASE 16 U/L (12-78); ALBUMIN 2.1 g/dL (3.4-5.0); ALKALINE PHOSPHATASE 95 U/L (45-117); ANION GAP 7 mmol/L (5-15); BILIRUBIN,TOTAL 0.8 mg/dL (0.2-1.0); CALCIUM 8.4 mg/dL (8.5-10.1); CREATININE 1.44 mg/dL (0.7-1.3); TOTAL PROTEIN 6.1 g/dL (6.4-8.2)
[2021-03-19 06:10] LABS: MD MORPH REVIEW ONLY
[2021-03-19 06:11] LABS: ANISOCYTOSIS 2+; HYPOCHROMIA 1+; MICROCYTOSIS 2+; OVALOCYTES 1+
[2021-03-19 06:12] LABS: <PLATELET ESTIMATE> ADEQUATE; <PLT MORPHOLOGY> NORMAL PLT MORPH; ECHINOCYTES 1+
[2021-03-19 07:28] VITALS: BP 163/85
[2021-03-19 09:36] VITALS: BP 176/89
[2021-03-19] MEDS: APIXABAN 5 MG TABLET PO SCH ×2 (09:41→20:53)
[2021-03-19] MEDS: POTASSIUM CHLORIDE 20 MEQ TAB.ER.PRT PO SCH ×2 (09:42→18:04)
[2021-03-19] MEDS: FUROSEMIDE 20 MG TABLET PO SCH (09:42)
[2021-03-19] MEDS: SENNA/DOCUSATE TABLET PO SCH (09:42)
[2021-03-19] MEDS: FERROUS SULFATE 325 MG TABLET PO SCH ×2 (09:42→18:03)
[2021-03-19] MEDS: SPIRONOLACTONE 25 MG TABLET PO SCH (09:42)
[2021-03-19] MEDS: CARVEDILOL 3.125 MG TABLET PO SCH ×2 (09:42→20:53)
[2021-03-19] MEDS: SODIUM CHLORIDE FLUSH 10ML SYR IVF SCH ×2 (09:43→21:00)
[2021-03-19] MEDS: LISINOPRIL 5 MG TABLET PO SCH (09:43)
[2021-03-19 15:41] VITALS: BP 163/104
[2021-03-19 20:00] VITALS: BP 161/88
[2021-03-19] MEDS: OXYcodone IR 5MG TABLET PO PRN (20:53)
[2021-03-19] MEDS: NICOTINE 14MG/24 HR PATCH.TD24 TD SCH (23:24)
[2021-03-20] MEDS: DAPTOMYCIN 650 MG in SODIUM CHLORIDE 0.9% 100 ML IVPB SCH (01:28)
[2021-03-20 01:40] VITALS: BP 149/86
[2021-03-20] MEDS: AMPICILLIN/SULBACTAM 3 GM in SODIUM CHLORIDE 0.9% 100 ML IV SCH ×3 (05:25→21:07)
[2021-03-20 06:04] LABS: MEAN CORPUSCULAR HEMOGLOBIN 21.7 pg (27.5-34.5); MEAN CORPUSCULAR HGB CONC 31.8 g/dL (33.2-36.2); MEAN PLATELET VOLUME 8.3 fL (7.4-10.4); PLATELET COUNT 204 x10^3/uL (130-400); RED BLOOD COUNT 4.49 x10^6/uL (4.38-5.82); RED CELL DISTRIBUTION WIDTH 22.3 % (9.4-14.8)
[2021-03-20 06:17] LABS: CHLORIDE 108 mmol/L (98-107)
[2021-03-20 06:30] LABS: ANION GAP 5 mmol/L (5-15); CALCIUM 7.8 mg/dL (8.5-10.1); CREATININE 1.59 mg/dL (0.7-1.3)
[2021-03-20 06:45] LABS: MD YES
[2021-03-20 06:49] LABS: BAND#(MANUAL) 0.25 x10^3/uL; BANDS%(MANUAL) 5 % (0-7); EOS% (MANUAL) 2 % (1-7); LYMPH#(MANUAL) 0.49 x10^3/uL (1-3.4); LYMPHS% (MANUAL) 10 % (22-44); MONOS#(MANUAL) 0.29 x10^3/uL (0.3-2.7); MONOS% (MANUAL) 6 % (2-9); MYELOCYTES# (MANUAL) 0.05 x10^3/uL (0-0); MYELOCYTES% (MANUAL) 1 % (0-0); SEG#(MANUAL) 3.72 x10^3/uL (1.8-6.8); SEGS% (MANUAL) 76 % (42-75)
[2021-03-20 06:50] LABS: ANISOCYTOSIS 2+; HYPOCHROMIA 1+; MICROCYTOSIS 1+
[2021-03-20 06:51] LABS: SCHISTOCYTES 1+
[2021-03-20 06:52] LABS: <PLATELET ESTIMATE> ADEQUATE; <PLT MORPHOLOGY> NORMAL PLT MORPH
[2021-03-20] MEDS: SENNA/DOCUSATE TABLET PO SCH (07:13)
[2021-03-20 07:56] VITALS: BP 146/77
[2021-03-20] MEDS ORDERED: NICO-486 TD (09:14)
[2021-03-20] MEDS ORDERED: POTA20TA6 PO (09:14)
[2021-03-20] MEDS ORDERED: APIX5TAB PO (09:14)
[2021-03-20] MEDS ORDERED: CARV6.2512 PO (09:14)
[2021-03-20] MEDS ORDERED: FERR-36 PO (09:14)
[2021-03-20] MEDS ORDERED: AMPI3VIA IV (09:14)
[2021-03-20] MEDS ORDERED: OXYC5TAB98 PO (09:14)
[2021-03-20] MEDS ORDERED: DAPT500V6 IV (09:14)
[2021-03-20 09:31] VITALS: BP 157/93
[2021-03-20] MEDS: FERROUS SULFATE 325 MG TABLET PO SCH ×2 (09:35→18:37)
[2021-03-20] MEDS: CARVEDILOL 6.25 MG TABLET PO SCH ×2 (09:35→21:07)
[2021-03-20] MEDS: APIXABAN 5 MG TABLET PO SCH ×2 (09:35→21:07)
[2021-03-20] MEDS: SPIRONOLACTONE 25 MG TABLET PO SCH (09:35)
[2021-03-20] MEDS: POTASSIUM CHLORIDE 20 MEQ TAB.ER.PRT PO SCH ×2 (09:35→18:37)
[2021-03-20] MEDS: SODIUM CHLORIDE FLUSH 10ML SYR IVF SCH ×2 (09:36→21:08)
[2021-03-20] MEDS ORDERED: GADOTERATE 10 MMOL/20 ML VIAL ONE (10:30)
[2021-03-20 12:22] VITALS: BP 134/69
[2021-03-20] MEDS: ACETAMINOPHEN 325 MG TABLET PO PRN (13:07)
[2021-03-20 19:50] VITALS: BP 136/83
[2021-03-20] MEDS: NICOTINE 14MG/24 HR PATCH.TD24 TD SCH (21:07)
[2021-03-21] MEDS: OXYcodone IR 5MG TABLET PO PRN (00:31)
[2021-03-21 00:32] VITALS: BP 120/74
[2021-03-21] MEDS: DAPTOMYCIN 650 MG in SODIUM CHLORIDE 0.9% 100 ML IVPB SCH (01:27)
[2021-03-21] MEDS ORDERED: morphine SULFATE 10 MG/ML, 1ML IVPush ONE (01:30)
[2021-03-21] MEDS: AMPICILLIN/SULBACTAM 3 GM in SODIUM CHLORIDE 0.9% 100 ML IV SCH ×3 (05:00→21:14)
[2021-03-21 05:44] LABS: BASOPHILS % (AUTO) 1 % (0-1); EOSINOPHILS % (AUTO) 5 % (1-7); LYMPHOCYTES % (AUTO) 26 % (22-44); MEAN CORPUSCULAR HEMOGLOBIN 21.5 pg (27.5-34.5); MEAN CORPUSCULAR HGB CONC 31.5 g/dL (33.2-36.2); MEAN PLATELET VOLUME 8.5 fL (7.4-10.4); MONOCYTES % (AUTO) 11 % (2-9); NEUTROPHILS % (AUTO) 57 % (42-75); PLATELET COUNT 208 x10^3/uL (130-400); RED CELL DISTRIBUTION WIDTH 23.3 % (9.4-14.8)
[2021-03-21 05:45] LABS: ANION GAP 5 mmol/L (5-15); CALCIUM 7.8 mg/dL (8.5-10.1); CHLORIDE 111 mmol/L (98-107)
[2021-03-21 05:46] LABS: CREATININE 1.56 mg/dL (0.7-1.3)
[2021-03-21 06:20] LABS: MD MORPH REVIEW ONLY
[2021-03-21 06:21] LABS: ANISOCYTOSIS 2+; HYPOCHROMIA 1+; MICROCYTOSIS 1+
[2021-03-21 06:22] LABS: <PLATELET ESTIMATE> ADEQUATE; <PLT MORPHOLOGY> NORMAL PLT MORPH; ECHINOCYTES 1+; OVALOCYTES 1+; SCHISTOCYTES 1+
[2021-03-21 07:48] VITALS: BP 166/90
[2021-03-21] MEDS: LACTOBACILLUS CHEW TABLET PO SCH ×3 (08:29→21:27)
[2021-03-21] MEDS: FERROUS SULFATE 325 MG TABLET PO SCH ×2 (08:29→16:52)
[2021-03-21] MEDS: CARVEDILOL 6.25 MG TABLET PO SCH ×2 (08:29→21:26)
[2021-03-21] MEDS: APIXABAN 5 MG TABLET PO SCH ×2 (08:29→21:27)
[2021-03-21] MEDS: SPIRONOLACTONE 25 MG TABLET PO SCH (08:29)
[2021-03-21] MEDS: SENNA/DOCUSATE TABLET PO SCH (08:30)
[2021-03-21] MEDS: SODIUM CHLORIDE FLUSH 10ML SYR IVF SCH ×2 (08:30→21:28)
[2021-03-21 13:36] VITALS: BP 148/97
[2021-03-21 20:03] VITALS: BP 160/82
[2021-03-21] MEDS: NICOTINE 14MG/24 HR PATCH.TD24 TD SCH (23:58)
[2021-03-22 00:01] VITALS: BP 125/70
[2021-03-22] MEDS: DAPTOMYCIN 650 MG in SODIUM CHLORIDE 0.9% 100 ML IVPB SCH (01:45)
[2021-03-22] MEDS: AMPICILLIN/SULBACTAM 3 GM in SODIUM CHLORIDE 0.9% 100 ML IV SCH ×2 (05:06→13:03)
[2021-03-22 06:24] LABS: ANION GAP 9 mmol/L (5-15); CALCIUM 8.4 mg/dL (8.5-10.1); CHLORIDE 110 mmol/L (98-107)
[2021-03-22 06:27] LABS: CREATININE 1.55 mg/dL (0.7-1.3)
[2021-03-22 07:04] VITALS: BP_SYST 93
[2021-03-22] MEDS: APIXABAN 5 MG TABLET PO SCH (08:46)
[2021-03-22] MEDS: FERROUS SULFATE 325 MG TABLET PO SCH ×2 (08:46→16:42)
[2021-03-22] MEDS: LACTOBACILLUS CHEW TABLET PO SCH ×2 (08:46→16:00)
[2021-03-22] MEDS: CARVEDILOL 6.25 MG TABLET PO SCH (08:47)
[2021-03-22] MEDS: SPIRONOLACTONE 25 MG TABLET PO SCH (08:47)
[2021-03-22] MEDS: SODIUM CHLORIDE FLUSH 10ML SYR IVF SCH (08:47)
[2021-03-22] MEDS: SENNA/DOCUSATE TABLET PO SCH (08:47)
[2021-03-22 13:39] VITALS: BP 147/91
== END 2021-03-22 20:19 | DRG 500 ==
LOC: ED 22:50 → EDIP 03-13 00:48 → 3N 03-13 01:37 → 5SO 03-15 04:36
PROVIDERS: ADMIT Internal Medicine; ATTEND Family Medicine
PROC: 0J9H0ZZ Drainage of Left Lower Arm Subcutaneous Tissue and Fascia, Open Approach (ICD-10-PCS; 2021-03-14)
PROC: 0MBB0ZZ Excision of Left Upper Extremity Bursa and Ligament, Open Approach (ICD-10-PCS; 2021-03-14)
PROC: 0R9M0ZZ Drainage of Left Elbow Joint, Open Approach (ICD-10-PCS; principal; 2021-03-14 11:00)
PROC: 02HV33Z Insertion of Infusion Device into Superior Vena Cava, Percutaneous Approach (ICD-10-PCS; 2021-03-19)
PROC: B548ZZA Ultrasonography of Superior Vena Cava, Guidance (ICD-10-PCS; 2021-03-19)
DX: M71.122 Other infective bursitis, left elbow (principal); J96.01 Acute respiratory failure with hypoxia; I50.23 Acute on chronic systolic (congestive) heart failure; I26.99 Other pulmonary embolism without acute cor pulmonale; L03.115 Cellulitis of right lower limb; M00.9 Pyogenic arthritis, unspecified; I42.9 Cardiomyopathy, unspecified; N39.0 Urinary tract infection, site not specified; N17.9 Acute kidney failure, unspecified; R78.81 Bacteremia; Z20.822 Contact with and (suspected) exposure to COVID-19; R62.7 Adult failure to thrive; D50.9 Iron deficiency anemia, unspecified; E11.9 Type 2 diabetes mellitus without complications; H54.61 Unqualified visual loss, right eye, normal vision left eye; I11.0 Hypertensive heart disease with heart failure; I25.10 Atherosclerotic heart disease of native coronary artery without angina pectoris; I25.5 Ischemic cardiomyopathy; I35.8 Other nonrheumatic aortic valve disorders; M21.371 Foot drop, right foot; M60.9 Myositis, unspecified; N40.0 Benign prostatic hyperplasia without lower urinary tract symptoms; N48.89 Other specified disorders of penis; Z79.01 Long term (current) use of anticoagulants; Z79.899 Other long term (current) drug therapy; Z83.1 Family history of other infectious and parasitic diseases; Z86.711 Personal history of pulmonary embolism; Z86.73 Personal history of transient ischemic attack (TIA), and cerebral infarction without residual deficits; Z87.442 Personal history of urinary calculi; Y93.9 Activity, unspecified; Z95.828 Presence of other vascular implants and grafts; Z79.891 Long term (current) use of opiate analgesic; Z68.30 Body mass index [BMI] 30.0-30.9, adult
CPT/HCPCS: 36415; 36573; 70450; 71045; 74183; 78452; 80048; 80053; 80202; 81001; 82272; 82728; 83540; 83550; 83735; 83880; 84100; 84484; 84550; 85025; 85379; 85651; 86140; 86480; 87040; 87070; 87075; 87077; 87086; 87147; 87186; 87205; 87635; 93005; 93017; 93356; 96360; 99285; C8929; G0378; J0295; J0696; J0878; J1170; J1644; J2250; J2405; J2704; J2785; J3010; J3370; A9502; A9575; C1751; J2270; J2370; J7030; J7040; J7050